=== PATIENT | female | born 1995 | race Caucasian/White ===

== ENCOUNTER 2021-05-29 04:55 | Emergency (ER) | payer OTHER ==
[2021-05-29 06:18] LABS: HIV (1/2) Antibody/Antigen Non-Reactive (NonReactive); HIV 1/2 INDEX 0.09 S/CO (<1.00); Hep C IgG Ab Non-Reactive (NonReactive); Hep C Index 0.06 S/CO (0-0.79)
[2021-05-29 07:23] LABS: Hep B Surf AB Reactive (NonReactive)
[2021-05-29 08:45] LABS: HBSAB Concentration 33844.11 mIU/mL
== END 2021-05-29 05:20 | disposition home or self-care (01) ==
LOC: ERS 04:55
DX: Z77.21 Contact with and (suspected) exposure to potentially hazardous body fluids (principal); J45.909 Unspecified asthma, uncomplicated
CPT/HCPCS: 36415; 86706; 86803; 87389; 99283